=== PATIENT | male | born 1975 | race Caucasian/White ===

== ENCOUNTER 2017-12-10 05:22 | Emergency (ER) | payer OTHER ==
[2017-12-10 05:32] VITALS: RESP 18
--- NOTE | 2017-12-10 05:38 | CPEKG ---
Heart Rate: 71 RR Interval: 845 P-R Interval: 164 QRSD Interval: 100 QT Interval: 388 QTC Interval: 422 P [place]: 60 QRS [place]: 9 T Wave [place]: 36 EKG Severity - NORMAL ECG - EKG Impression: SINUS RHYTHM Electronically Signed By: Julian Jiménez 10-Dec-2017 06:53:51
[2017-12-10 06:07] LABS: PLATELET COUNT 166 10^3/uL (150-400)
--- NOTE | 2017-12-10 06:17 | EDPHY ---
H & P Stated Complaint: CP post 30mg of virtussin Time Seen by Provider: 12/10/17 05:43 HPI/ROS: Chief Complaint: Chest pain HPI: 42-year-old male who is diagnosed with influenza a yesterday and started on Virtussin AC and Tamiflu. He woke up this morning with cough. Accidentally took 30 mg of the Virtussin instead of the prescribed 5 mg. About 30 min later , at 3:30 a.m., he developed substernal and epigastric cramping and pain, 10/ 10. No associated shortness of breath. It did not radiate. It is now improved in down to about a 3/10 without any relief. He does not have a history of coronary disease. Is not a history of smoking. There is no family history of coronary artery disease. Pain is not radiating. There are no aggravating or alleviating factors. ROS: 10 point Review of Systems is negative except as noted in the HPI. PMH: Denies Social History: No smoking, no alcohol, no recreational drug use Family History: No family history of coronary artery disease Physical Exam: Gen: Awake, Alert, No Distress HEENT: Nose: no rhinorrhea Eyes: PERRLA, EOMI Mouth: Moist mucosa Neck: Supple, no JVD Chest: nontender, lungs clear to auscultation Heart: S1, S2 normal, no murmur Abd: Soft, non-tender, no guarding Back: no CVA tenderness, no midline tenderness Ext: no edema, non-tender Skin: no rash Neuro: CN II-XII intact, Sensation grossly intact, Strength 5/5 in bilateral upper and lower extremities - Personal History Current Tetanus/Diphtheria Vaccine: Yes - Medical/Surgical History Hx Asthma: No Hx Chronic Respiratory Disease: No Hx Diabetes: No Hx Cardiac Disease: No Hx Renal Disease: No Hx Cirrhosis: No Hx Alcoholism: No Hx HIV/AIDS: No Hx Splenectomy or Spleen Trauma: No Other PMH: CHOLECYSTECTOMY. lymes disease, - Social History Smoking Status: Never smoked Constitutional: Initial Vital Signs Temperature (C) 37.1 C 12/10/17 05:24 Heart Rate 75 12/10/17 05:24 Respiratory Rate 18 12/10/17 05:24 Blood Pressure 109/76 12/10/17 05:24 O2 Sat (%) 95 12/10/17 05:24 O2 Delivery Mode Room Air Allergies/Adverse Reactions: No Known Allergies Allergy (Verified 08/09/15 13:56) Home Medications: Medication Instructions Recorded Doxycycline Hyclate 12/10/17 Prilosec 12/10/17 Rifampin 12/10/17 Tamiflu 12/10/17 Virtussin AC Liquid 12/10/17 Medical Decision Making - Diagnostics EKG Interpretation: ECG time 5:37 a.m., sinus rhythm with a rate of 71, normal axis, normal intervals, no acute ST or T-wave changes. Impression: Normal ECG. ED Course/Re-evaluation: Patient is improved. ECG is normal. Troponin is negative. Patient is low risk for acute coronary syndrome. His lungs are clear. His vital signs are normal. His oxygenation is excellent. Will discharge with follow-up with his primary care physician as an outpatient. He will return for any worsening chest pain, shortness of breath, uncontrolled fevers or chills, or any other concerns. - Data Points Laboratory Results: Laboratory Results 12/10/17 06:00 12/10/17 06:00 12/10/17 12/10/17 06:00 06:00 WBC 6.23 10^3/uL 10^3/uL (3.80-9.50) RBC 4.99 10^6/uL 10^6/uL (4.40-6.38) Hgb 15.2 g/dL g/dL (13.7-17.5) Hct 44.5 % % (40.0-51.0) MCV 89.2 fL fL (81.5-99.8) MCH 30.5 pg pg (27.9-34.1) MCHC 34.2 g/dL g/dL (32.4-36.7) RDW 12.2 % % (11.5-15.2) Plt Count 166 10^3/uL 10^3/uL (150-400) MPV 9.5 fL fL (8.7-11.7) Neut % (Auto) 74.4 % H % (39.3-74.2) Lymph % (Auto) 16.9 % % (15.0-45.0) Ada % (Auto) 7.9 % % (4.5-13.0) Eos % (Auto) 0.3 % L % (0.6-7.6) Baso % (Auto) 0.3 % % (0.3-1.7) Nucleat RBC Rel Count 0.0 % % (0.0-0.2) Absolute Neuts (auto) 4.64 10^3/uL 10^3/uL (1.70-6.50) Absolute Lymphs (auto) 1.05 10^3/uL 10^3/uL (1.00-3.00) Absolute Monos (auto) 0.49 10^3/uL 10^3/uL (0.30-0.80) Absolute Eos (auto) 0.02 10^3/uL L 10^3/uL (0.03-0.40) Absolute Basos (auto) 0.02 10^3/uL 10^3/uL (0.02-0.10) Absolute Nucleated RBC 0.00 10^3/uL 10^3/uL (0-0.01) Immature Gran % 0.2 % % (0.0-1.1) Immature Gran # 0.01 10^3/uL 10^3/uL (0.00-0.10) Sodium 144 mEq/L mEq/L (135-145) Potassium 4.5 mEq/L mEq/L (3.5-5.2) Chloride 102 mEq/L mEq/L (97-110) Carbon Dioxide 32 mEq/l H mEq/l (22-31) Anion Gap 10 mEq/L mEq/L (8-16) BUN 11 mg/dL mg/dL (7-23) Creatinine 1.1 mg/dL mg/dL (0.7-1.3) Estimated GFR > 60 Glucose 107 mg/dL H mg/dL (70-100) Calcium 9.0 mg/dL mg/dL (8.5-10.4) Troponin I < 0.012 ng/mL ng/mL (0.000-0.034) Departure - Departure Disposition: Home, Routine, Self-Care Clinical Impression: Chest pain Condition: Good Instructions: Chest Pain (ED) Additional Instructions: Follow up with your primary care physician in 3-4 days if symptoms are not improving. Return to the emergency department for chest pain, shortness of breath, uncontrolled nausea vomiting, uncontrolled fevers, or any other concerns.
[2017-12-10 06:50] VITALS: BP 112/75; PULSE 69; TEMP 98.6; O2SAT 96
== END 2017-12-10 06:49 | disposition home or self-care (01) ==
LOC: EDUNIT#
DX: R07.9 Chest pain, unspecified (principal)

== ENCOUNTER → 2018-05-02 | Outpatient (CLI) | payer OTHER | LOC: FIMAGING 09:07 | PROVIDERS: ATTEND Internal Medicine Gastroenterology | DX: K44.9 Diaphragmatic hernia without obstruction or gangrene (principal); K21.9 Gastro-esophageal reflux disease without esophagitis ==